=== PATIENT | male | born 1995 | race Caucasian/White ===

== ENCOUNTER 2024-04-28 16:27 | Emergency (ER) | payer OTHER, SELFPAY ==
[2024-04-28 16:28] VITALS: BP 117/70; PULSE 75; RESP 16; TEMP 37.2; O2SAT 99; BMI 23.1
[2024-04-28] MEDS: Ibuprofen 600 MG Tablet PO (17:25)
[2024-04-28] MEDS: Ondansetron 4 MG/2 ML Vial IV (17:25)
[2024-04-28 18:12] VITALS: BP 117/70; PULSE 75; RESP 16; TEMP 37.2; O2SAT 99
--- NOTE | 2024-04-28 18:13 | EX.ED.DYSGE1 ---
HPI History of Present Illness Chief Complaint: General Illness Narrative Narrative: Chief complaint and HPI: Flulike symptoms. 29-year-old male with no significant past medical history presents for evaluation of flulike symptoms. Onset of symptoms Monday. Patient endorses episodic fever, headache, body aches, congestion, sore throat. Denies any shortness of breath or cough. Denies any abdominal pain, nausea, vomiting, diarrhea. Has been taking wrmv-ajg-xsfvune cold medicine. Patient states that he wanted to be evaluated for influenza as he has a 2-year-old daughter. Review of systems: See HPI Medications: As listed on the chart Allergies: As listed on the chart PFSH: Per chart Vital signs: As listed on the chart. Reviewed. Physical exam: Gen: A&O x3, NAD Head: Normocephalic, atraumatic Eyes: No sclera icterus, conjunctiva clear, PERRL, EOMI ENT: TMs clear BL, moist mucous membranes, posterior oropharynx unremarkable, uvula midline, tonsils not enlarged, no tonsillar exudates, + nasal congestion Neck: Trachea midline, No JVD, Full ROM, No meningismus CV: RRR, no murmurs, no peripheral edema Resp: Lungs CTA BL, no w/r/c GI: Abd soft, non-distended, non-tender, no r/r/g Musc: Full ROM, no deformity Skin: Warm, dry, no rash Neuro: Alert, oriented, grossly intact, sensation intact Psych: Cooperative, appropriate mood and affect PFSH PFSH Medical History no medical history Home Medications ?Medication ?Instructions ?Recorded ?Last Taken ?Type NK 04/28/24 Unknown History Allergy/AdvReac Type Severity Reaction Status Date / Time No Known Allergies Allergy Verified 04/28/24 16:28 Family History (Updated 04/28/24 @ 17:05 by Meche Cervantes) Father Myocardial infarction Surgical History no surgical history Social History (Updated 04/28/24 @ 17:05 by Meche Cervantes) household members: spouse and children housing: house current occupational status: employed Smoking Status: Never smoker EXAM Physical Exam Const Vital Signs: 04/28/24 16:28 04/28/24 17:04 04/28/24 18:12 Temperature 99.0 F 99.0 F Temperature Source Oral Pulse Rate 75 75 Respiratory Rate 16 16 Respiratory Effort Normal Non-Labored Respiratory Pattern Normal Blood Pressure 117/70 117/70 Blood Pressure Mean 85 85 Pulse Ox 99 99 Oxygen Delivery Method Room Air MDM MDM MDM Narrative Medical decision making narrative: 29-year-old male with no significant past medical history presents for evaluation of flulike symptoms. Patient states he has a 2-year-old daughter at home and wanted to be evaluated for influenza. He is nontoxic-appearing. Vitals are stable. Has not recently took any OTC medications therefore ibuprofen and Zofran ordered for symptoms. COVID, flu, RSV testing ordered. I do not think any further laboratory imaging or chest x-ray is needed at this time. Differential diagnosis includes but is not limited to influenza, COVID-19, RSV, and other viral illness. Patient is positive for influenza A. Patient able to tolerate p.o. intake. Patient is stable to discharge home. Patient was given education on symptomatic management with OTC medications. He was offered prescriptions for nausea and cough however declined. Follow-up with PCP. He confirmed understanding of the plan. Impression: 1. Influenza A Discharge Plan Triage Chief Complaint: General Illness ED Provider: Torres Barton Dx/Rx/DC Orders Clinical Impression: Influenza Instructions: ED Influenza (Adult) Prescriptions: No Action NK Primary Care Provider: Care Physician,No Primary Referrals: Laith Matthews MD [Med Staff - Active Staff] - 3-5 Days NOT,DEFINED [Non-Staff] - Activity Restrictions/Additional Instructions: You received Motrin here in the emergency department. No ibuprofen for 4 to 6 hours. Okay for Tylenol. Tbfn-vjg-dujeabg symptomatic cold medicine. Follow-up with primary care physician. Print Language: [place] Disposition Disposition: Home, Self Care Discharge Date/Time: 04/28/24 18:21
== END 2024-04-28 18:21 | disposition home or self-care (01) ==
PROVIDERS: Emergency Provider Surgery; Visit Provider Surgery
DX: J10.1 Influenza due to other identified influenza virus with other respiratory manifestations (principal)
CPT/HCPCS: 87631; 96374; 99282; J2405